=== PATIENT | male | born 1975 | race Caucasian/White ===

== ENCOUNTER 2024-02-08 11:21 | Emergency (ER) | payer BC, SELFPAY ==
[2024-02-08 11:23] VITALS: BP 172/84; PULSE 88; RESP 16; TEMP 36.4; O2SAT 98; BMI 24.9
--- NOTE | 2024-02-08 11:53 | ED.SKABFB ---
HPI - Skin/Abscess/Foreign Bdy <Argenis Cage PA-C - Last Filed: 02/08/24 13:30> General Chief complaint: Skin/Abscess/Foreign Body Stated complaint: cyst on neck Time Seen by Provider: 02/08/24 11:28 Source: patient Mode of arrival: Ambulatory History of Present Illness HPI narrative: 48-year-old male here today for a cyst on the back of his neck. He was seen on January 29 at the walk-in clinic for this same thing. States he has had a lump in that area for a long time and it was about the size of a dime but then it recently got much larger and became painful. He was given a prescription for antibiotics at the walk-in clinic (keflex) but only took 3 tablets of it total. He came in today to see if it could either be removed or if he could get some sort of relief from the pain. He has admittedly not done warm compresses too frequently. Related Data Previous Rx's Medication Instructions Recorded doxycycline hyclate 100 mg tablet 100 mg PO BID 10 days #20 tabs 02/08/24 Allergies Allergy/AdvReac Type Severity Reaction Status Date / Time No Known Drug Allergies Allergy Verified 02/08/24 11:23 Review of Systems <Argenis Cage PA-C - Last Filed: 02/08/24 13:30> Review of Systems ROS Unobtainable: All systems reviewed & are unremarkable except as noted in HPI and below Patient History <Argenis Cage PA-C - Last Filed: 02/08/24 13:30> Social History Smoking Status: Never smoker Smoking Status: Never smoker alcohol intake frequency: a few times a week Substance Use Type: does not use Exam <Argenis Cage PA-C - Last Filed: 02/08/24 13:30> Narrative Exam Narrative: GENERAL: Well-developed, well-nourished, appears stated age. In no acute distress HEAD: Atraumatic. Normocephalic. EYES: Pupils equal round and reactive. Extraocular motions intact. No scleral icterus. No injection or drainage. ENT: Nose without bleeding, purulent drainage. Airway patent. NECK: Trachea midline. Non tender RESPIRATORY: Respiratory rate and effort normal EXTREMITIES: No edema or joint tenderness. NEURO: AOx3. SKIN: 6 cm erythematous subcutaneous mobile mass on the posterior left neck. Slightly tender to touch. No induration. Very minimal surrounding erythema. Initial Vital Signs Initial Vital Signs: Vital Signs Temperature 97.5 F L 02/08/24 11:23 Pulse Rate 88 02/08/24 11:23 Respiratory Rate 16 02/08/24 11:23 Blood Pressure 172/84 H 02/08/24 11:23 Pulse Oximetry 98 02/08/24 11:23 Oxygen Delivery Method Room Air 02/08/24 11:23 <Katherine Bean MD - Last Filed: 02/08/24 14:58> Initial Vital Signs Initial Vital Signs: Vital Signs Temperature 97.5 F L 02/08/24 11:23 Pulse Rate 88 02/08/24 11:23 Respiratory Rate 16 02/08/24 11:23 Blood Pressure 172/84 H 02/08/24 11:23 Pulse Oximetry 98 02/08/24 11:23 Oxygen Delivery Method Room Air 02/08/24 11:23 Course <Argenis Cage PA-C - Last Filed: 02/08/24 13:30> Vital Signs Vital signs: Vital Signs - 8 hr 02/08/24 11:23 Temperature 97.5 F L Pulse Rate 88 Respiratory Rate 16 Blood Pressure 172/84 H Pulse Oximetry 98 Oxygen Delivery Method Room Air <Katherine Bean MD - Last Filed: 02/08/24 14:58> Vital Signs Vital signs: Vital Signs - 8 hr 02/08/24 11:23 Temperature 97.5 F L Pulse Rate 88 Respiratory Rate 16 Blood Pressure 172/84 H Pulse Oximetry 98 Oxygen Delivery Method Room Air MDM - Skin/Abscess/Foreign Bdy <Argenis Cage PA-C - Last Filed: 02/08/24 13:30> MDM Narrative Medical decision making narrative: ddx: Sebaceous cyst, lipoma, abscess The mass on patient's neck is discrete and mobile subcutaneously without any fluctuance. This is not an abscess. Exam most consistent with an infected sebaceous cyst. Discussed with patient that removal of the cyst is not a procedure done in the ER but rather with a signs cleaner or sometimes a general surgeon. It is also ideal to take antibiotics prior to removal as there is usually a better outcome, less bleeding, etc. patient advised to take full course of antibiotics which he has not done yet and to apply warm compresses as frequently as possible. Referral given to a signs cleaner so he can call and make appointment for removal. The erythema localized there are no signs of any diffuse infection. Patient is nontoxic with normal vital signs. Stable for discharge with oral antibiotics. Discharge Plan Departure Patient Disposition: Home Clinical Impression: Infected cyst of skin Instructions: DI for Epidermal Cyst Activity Restrictions/Additional Instructions: Thank you for choosing us to care for you today. You were seen for an infected cyst on the back of your neck. Unfortunately cysts can not be removed here in the emergency department so you were referred to Dermatology so they can evaluate the cyst and remove it. I have also prescribed you an antibiotic called doxycycline. Please take this twice daily for 10 days. Warm compresses are also highly recommended for your cyst. Please use the warm compress for 10-15 minutes at a time as frequently as possible. If you are continuing to have worsening pain, increased in size, or other new or worsening concerns you may return here or to the walk-in clinic for re-evaluation. Prescriptions: New doxycycline hyclate 100 mg tablet 100 mg PO BID 10 Days Qty: 20 0RF Referrals: Kayla Heaton MD [Non-Staff] - (6cm sebaceous cyst on posterior neck. Currently infected and on Doxycycline. Please eval for removal. ) Stand Alone Forms: Patient Portal/API ED Sign-out <Katherine Bean MD - Last Filed: 02/08/24 14:58> Cosign ED Attending Cosignature Attestation: I did not see this patient. I was available all times for consultation.
== END 2024-02-08 12:10 | disposition home or self-care (01) ==
PROVIDERS: Emergency Provider Physician Assistant
DX: L72.8 Other follicular cysts of the skin and subcutaneous tissue (principal); L08.89 Other specified local infections of the skin and subcutaneous tissue
CPT/HCPCS: 99281; 99282